=== PATIENT | male | born 1995 | race Two or more races ===

== ENCOUNTER 2021-07-05 21:19 | Emergency (ER) | payer MEDICAID ==
[~2021-07-05] VITALS: Ht 182.9 cm; Wt 113.4 kg
[2021-07-05 21:19] VITALS: BP 123/90
[2021-07-05] MEDS ORDERED: KETOROLAC TROMETH 30 MG/ML 1ML VIAL IM ONE (22:15)
[2021-07-06] MEDS ORDERED: methylPREDNISolone SOD SUCC 125 MG/2 ML VL IM ONE (00:30)
[2021-07-06] MEDS ORDERED: methylPREDNISolone SOD SUCC 125 MG/2 ML VL ONE (00:34)
[2021-07-06] MEDS ORDERED: AZIT1POW12 PO (00:37)
== END 2021-07-06 01:13 | disposition home or self-care (01) ==
LOC: ER 21:19
DX: J35.1 Hypertrophy of tonsils (principal); Z79.2 Long term (current) use of antibiotics
CPT/HCPCS: 87070; 87880; 96372; 99284; J1885; J2930

== ENCOUNTER 2021-10-29 09:55 | Emergency (ER) | payer MEDICAID ==
[~2021-10-29] VITALS: Ht 182.9 cm; Wt 113.4 kg
[~2021-10-29 09:55] MED LIST: AZIT1POW12 PO
[2021-10-29 10:10] VITALS: BP 141/86
[2021-10-29] MEDS ORDERED: ALBUAER3 IN (11:06)
== END 2021-10-29 11:23 | disposition home or self-care (01) ==
LOC: ER 09:55
DX: J45.909 Unspecified asthma, uncomplicated (principal); Z76.0 Encounter for issue of repeat prescription
CPT/HCPCS: 71046

== ENCOUNTER 2021-11-03 19:38 | Emergency (ER) | payer MEDICAID ==
[~2021-11-03] VITALS: Ht 182.9 cm; Wt 113.4 kg
[~2021-11-03 19:38] MED LIST changes: +ALBUAER3 IN
[2021-11-03] MEDS ORDERED: HYDROcodone-ACET 10/325MG TAB PO ONE (21:00)
[2021-11-03] MEDS ORDERED: LORazepam 2MG/ML-1ML VIAL IV ONE (22:00)
[2021-11-03] MEDS ORDERED: PROPOFOL 100 ML IV ONE (23:35)
[2021-11-03] MEDS ORDERED: ETOMIDATE (2MG/ML) 20ML VIAL IV ONE ×2 (23:36→23:45)
[2021-11-03] MEDS ORDERED: PROPOFOL 10 MG/ML 20 ML IV ONE ×2 (23:45)
[2021-11-03] MEDS ORDERED: SODIUM CHLORIDE 0.9% 1,000 ML IV ONE (23:45)
[2021-11-04 01:38] VITALS: BP 114/69
== END 2021-11-04 01:34 | disposition home or self-care (01) ==
LOC: ER 19:38 → EDBD 19:38 → EDSEX 19:38 → ER 11-04 01:34
DX: S83.011A Lateral subluxation of right patella, initial encounter (principal); X50.1XXA Overexertion from prolonged static or awkward postures, initial encounter; Y93.89 Activity, other specified; Y92.89 Other specified places as the place of occurrence of the external cause; Y99.8 Other external cause status
CPT/HCPCS: 27560; 73560; 73564; 96361; 96374; 99152; 99153; 99285; J2060; J2704; J7030

== ENCOUNTER 2023-01-28 18:48 | Emergency (ER) | payer MEDICAID ==
[~2023-01-28] VITALS: Ht 182.9 cm; Wt 130.2 kg
[2023-01-28] MEDS ORDERED: methylPREDNISolone SOD SUCC 40 MG/ML VL IV ONE (19:15)
[2023-01-28] MEDS ORDERED: IPRATROPIUM BROM 0.5 MG/2.5ML INH SOL NEB ONE (19:15)
[2023-01-28] MEDS ORDERED: ALBUTEROL SULF 2.5 MG/0.5ML(0.5%) NEB SOLN NEB ONE (19:15)
[2023-01-28 19:59] LABS: Alanine Aminotransferase 122 U/L (7-40); Alkaline Phosphatase 75 U/L (46-116); Anion Gap 4 (5-15); Aspartate Aminotransferase 42 U/L (13-40); BUN/Creatinine Ratio 10.8 (10.0-20.0); Blood Urea Nitrogen 9 mg/dL (9-23); Calcium 9.7 mg/dL (8.7-10.4); Carbon Dioxide 29 mmol/L (20-30); Chloride 108 mmol/L (98-107); Glucose 90 mg/dL (74-106); Potassium 4.2 mmol/L (3.5-5.1); Sodium 141 mmol/L (136-145)
[2023-01-28 20:00] LABS: Albumin 4.7 g/dL (3.2-4.8); Bilirubin, Total 0.4 mg/dL (0.2-1.0); Total Protein 7.4 g/dL (5.7-8.2)
[2023-01-28 20:50] LABS: Basophils # (auto) 0.1 10 ^3/uL (0-0.2); Basophils % (auto) 1.3 % (0.0-2.0); Eosinophils # (auto) 1.1 10 ^3/uL (0-0.8); Eosinophils % (auto) 13.5 % (0.0-7.0); Hemoglobin 16.1 g/dL (13.5-17.5); Lymphocytes # (auto) 1.9 10 ^3/uL (0.4-5.4); Lymphocytes % (auto) 24.3 % (10.0-50.0); Mean Corpuscular Hgb Conc. 34.2 g/dL (32.0-36.0); Mean Corpuscular Volume 90.6 fL (80.0-100.0); Monocytes # (auto) 0.6 10 ^3/uL (0-1.3); Monocytes % (auto) 7.3 % (0.0-12.0); Neutrophils # (auto) 4.2 10 ^3/uL (1.6-8.6); Neutrophils % (auto) 53.6 % (37.0-80.0); Nucleated Red Blood Cells % 0.1 %; Red Blood Cells 5.19 10^6/uL (4.5-5.90); Red Cell Distribution Width 13.3 % (11.8-14.3); White Blood Cell 7.8 10^3/uL (4.4-10.8)
[2023-01-29 00:24] VITALS: BP 137/73; PULSE 68; RESP 18; TEMP 97.8; O2SAT 95
[2023-01-29] MEDS ORDERED: BECL80AE11 IN (00:28)
[2023-01-29] MEDS ORDERED: ALBU108A5 IN (00:28)
== END 2023-01-29 00:32 | disposition home or self-care (01) ==
LOC: ER 18:48
DX: J45.909 Unspecified asthma, uncomplicated (principal); F12.10 Cannabis abuse, uncomplicated
CPT/HCPCS: 36415; 71045; 80053; 85025; 94640; 96374; 99284; J2920; J7644

== ENCOUNTER 2023-04-09 19:14 | Emergency (ER) | payer MEDICAID ==
[~2023-04-09] VITALS: Ht 182.9 cm; Wt 131.8 kg
[~2023-04-09 19:14] MED LIST changes: +ALBU108A5 IN; +BECL80AE11 IN
[2023-04-09 21:04] VITALS: BP 121/76; PULSE 78; RESP 20; TEMP 97.8; O2SAT 96
[2023-04-09] MEDS ORDERED: ALBU108A5 IN (22:05)
== END 2023-04-09 22:20 | disposition home or self-care (01) ==
LOC: ER 19:14
DX: J45.909 Unspecified asthma, uncomplicated (principal); F15.90 Other stimulant use, unspecified, uncomplicated; Z79.899 Other long term (current) drug therapy; Z76.0 Encounter for issue of repeat prescription